=== PATIENT | female | born 1975 | race Caucasian/White ===

== ENCOUNTER 2018-01-09 12:27 | Emergency (ER) | payer OTHER, MEDICAID ==
[~2018-01-09] VITALS: Ht 172.7 cm; Wt 79.0 kg
[2018-01-09] MEDS ORDERED: METFORMIN HCL500 MG PO (13:17)
[2018-01-09 13:24] VITALS: BP 155/89
== END 2018-01-09 13:25 | disposition home or self-care (01) ==
LOC: M.ERS 12:27
DX: S01.01XA Laceration without foreign body of scalp, initial encounter (principal); W07.XXXA Fall from chair, initial encounter; Y93.89 Activity, other specified; Y92.89 Other specified places as the place of occurrence of the external cause; Y99.8 Other external cause status